=== PATIENT | male | born 1960 | race African-American/Black ===

== ENCOUNTER 2020-11-14 14:03 | Emergency (ER) | payer MEDICARE, MEDICAID ==
[~2020-11-14] VITALS: Ht 180.3 cm; Wt 100.0 kg
[2020-11-14] MEDS ORDERED: CEPH500C2 MT (14:57)
[2020-11-14] MEDS ORDERED: SULF1TAB48 MT (14:57)
[2020-11-14] MEDS ORDERED: ACET650T37 MT (14:58)
[2020-11-14 15:02] VITALS: BP 137/98
== END 2020-11-14 15:15 | disposition home or self-care (01) ==
LOC: ER 14:03
DX: M71.022 Abscess of bursa, left elbow (principal)
CPT/HCPCS: 99283